=== PATIENT | female | born 1975 | race Caucasian/White ===

== ENCOUNTER 2017-02-22 21:25 | Inpatient (IN) | payer OTHER ==
[~2017-02-22] VITALS: Ht 162.6 cm; Wt 100.5 kg
[~2017-02-22 21:25] MED LIST: MTR600X PO; OXYC-57 PO
[2017-02-22] MEDS ORDERED: SODIUM CHLORIDE 0.9% 1000ML 1,000 ML IV STA ×2 (21:58)
[2017-02-22 22:13] LABS: ISTAT CREATININE 0.9 mg/dl (0.6-1.3); ISTAT HEMOGLOBIN 14.6 g/dl (12.0-16.0); ISTAT IONIZED CALCIUM 1.17 mmol/l (1.12-1.32)
[2017-02-22 22:14] LABS: URINE APPEARANCE CLEAR (CLEAR); URINE BILIRUBIN NEG (NEG); URINE COLOR YELLOW; URINE NITRITE NEG (NEG); UROBILINOGEN NEG (NEG); ZZUR CULT IF INDIC CLEAN CATCH NO
[2017-02-22 22:16] LABS: MANUAL MICROSCOPIC REQUIRED? NO; REVIEW REQ? NO
[2017-02-22 22:24] LABS: PREG INTERNAL NEGATIVE QC NEG CLEAR BACKGROUND; PREG INTERNAL POSITIVE QC POS CONTROL LINE
[2017-02-22 22:26] LABS: ALT/SGPT 31 U/L (12-78); BLOOD UREA NITROGEN 9 mg/dl (7-18); BUN/CREATININE RATIO 9.6 (10-20); CALCIUM 9.1 mg/dl (8.5-10.1); CARBON DIOXIDE 22 mmol/L (21-32); CHLORIDE 107 mmol/L (98-107); CREATININE 0.94 mg/dl (0.60-1.20); GLUCOSE 67 mg/dl (70-99); MAGNESIUM 2.6 mg/dl (1.8-2.4); POTASSIUM 3.1 mmol/L (3.5-5.1); SODIUM 139 mmol/L (136-145)
[2017-02-22 22:30] LABS: BASO % 0.2 %; BASO ABS # 0.02 K/uL (0-0.2); COMPLETE YES; EOS % 1.2 %; HEMATOCRIT 38.6 % (37-47); IG% 0.2 %; LYMPH % 31.9 %; LYMPH ABS # 3.48 K/uL (1.2-3.4); MEAN CELL VOLUME 87.3 fL (80-100); MEAN CORPUSCULAR HEMOGLOBIN 30.1 pg (25-34); MEAN CORPUSCULAR HGB CONC 34.5 g/dl (32-36); MEAN PLATELET VOLUME 9.8 fL (7.4-10.4); MONO % 4.7 %; NEUT % 61.8 %; PLATELET COUNT 267 K/uL (130-400); RED BLOOD COUNT 4.42 M/uL (4.2-5.4)
[2017-02-22] MEDS ORDERED: POTASSIUM CHLORIDE 10 MEQ TABCR PO STA (22:33)
[2017-02-22 22:40] LABS: BENZODIAZEPINE, URINE NEG (NEG); COCAINE,URINE NEG (NEG); PHENCYCLIDINE, URINE NEG (NEG)
[2017-02-22 22:41] LABS: ALKALINE PHOSPHATASE 74 U/L (45-117); AST/SGOT 21 U/L (15-37); CKMB/CK RATIO 0.7 (0-3.0); PHOSPHORUS 1.3 mg/dl (2.5-4.9)
[2017-02-22 22:42] LABS: PARTIAL THROMBOPLASTIN RATIO 1.1; PROTHROMBIN TIME (PATIENT) 10.4 SECONDS (9.0-12.0)
--- NOTE | 2017-02-22 22:43 | DIAGNOSTIC IMAGING REPORT ---
HEAD CT NONCONTRAST CT DOSE: 537.48 mGy.cm HISTORY: seizure, new, headache TECHNIQUE: Multiaxial CT images of the head were performed without the use of intravenous contrast. Automated exposure control was utilized for this study. Comparison: None. Findings: The paranasal sinuses and mastoid air cells are clear. The calvarium and skull base are intact. The ventricles and sulci are within normal limits. There is no mass, hematoma, midline shift, or acute infarct. Impression: No acute intracranial abnormality. If this is the patient's first reported seizure then follow-up nonemergent brain MRI is recommended. Electronically signed by: Conner Spear M.D. 02/22/2017 10:41 PM Dictated Date/Time: 02/22/2017 10:39 PM
[2017-02-22] MEDS ORDERED: POTASSIUM PHOS 3 MMOL/1 ML INFUSION IV ONE (23:30)
[2017-02-23] MEDS ORDERED: OPTIRAY 320 IV PRN
[2017-02-23 00:05] VITALS: BP 144/85; PULSE 90; TEMP 36.7; O2SAT 98; Ht 162.6 cm; Wt 100.5 kg
[2017-02-23] MEDS ORDERED: FOLIC ACID IV ONE (00:30)
[2017-02-23] MEDS ORDERED: ACETAMINOPHEN 325 MG TAB PO PRN (00:30)
[2017-02-23] MEDS ORDERED: LORAZEPAM INJ 1 MG in SYRINGE 0.5 ML IV PRN (00:30)
[2017-02-23] MEDS ORDERED: [UNRECOGNIZED DRUG - OTHER] IV ONE (00:30)
[2017-02-23] MEDS ORDERED: LORAZEPAM 2 MG/ML 1 ML VIAL IV PRN (00:30)
[2017-02-23] MEDS ORDERED: KETOROLAC TROMETHAMINE 30 MG/ML VIAL IV PRN (00:30)
[2017-02-23] MEDS ORDERED: ONDANSETRON INJ 2 MG/ML 2 ML VIAL IV PRN (00:30)
[2017-02-23] MEDS ORDERED: OXYCODONE/ACETAMINOPHEN 5-325 TAB PO PRN (00:30)
[2017-02-23] MEDS ORDERED: THIAMINE HCL IV ONE (00:30)
[2017-02-23] MEDS ORDERED: MULTI VITAMIN INFUSION IV ONE (00:30)
[2017-02-23] MEDS ORDERED: SODIUM CHLORIDE 0.9% IV ONE (01:15)
[2017-02-23] MEDS ORDERED: POTASSIUM PHOSPHATE IV ONE (01:15)
--- NOTE | 2017-02-23 01:27 | History and Physical ---
History & Physical Date & Time of Service: Feb 23, 2017 at 01:27 Chief Complaint: possible seizures as per records syncope Primary Care Physician: Reji Bella M.D. History of Present Illness Source: patient, clinic records, EMS Last night patient was getting ready to watch a television show was seated down she noted neck pain. Pleuritic chest upper abdominal pain going to the back. Subsequently blacked out. Patient woke up in the emergency room. Mouth a little sore, no incontinence. No headache. As per filler and trimmer patient was noted to have stiffening of lower extremities followed by seizure-like activity lasting 30 seconds. Another episode witnessed by EMS as per RN. No previous episodes as per px. Admits to a lot of personal stressors lately. 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 Smoking Status: Current Every Day Smoker Marital Status: Housing status: lives with family Occupational Status: employed Immunizations History of Influenza Vaccine: Unknown History of Tetanus Vaccine?: Unknown History of Pneumococcal: Unknown History of Hepatitis B Vaccine: Unknown Multi-Drug Resistant Organisms History of MDRO: No Allergies Coded Allergies: Influenza Vaccines (Unverified Allergy, Severe, Swelling of throat, ) Sulfamethoxazole w/Trimethoprim (Verified Allergy, Mild, RASH, 05/29/14) Fluoxetine (Verified Allergy, Unknown, 05/29/14) Penicillins (Verified Allergy, Unknown, 05/29/14) Home Medications No Active Prescriptions or Reported Meds Review of Systems as per HPI, all other ROS negative Physical Exam Vital Signs Date Time Temp Pulse Resp B/P (MAP) Pulse Ox O2 Delivery O2 Flow Rate FiO2 02/23/17 00:05 36.7 90 20 144/85 98 Room Air 02/22/17 23:54 95 18 139/79 98 Room Air 02/22/17 22:03 Room Air 02/22/17 22:03 Room Air 02/22/17 21:44 98 02/22/17 21:36 36.8 101 20 146/86 95 Room Air General Appearance: + obese, + pertinent finding (occasionally tearful) Head: normocephalic Eyes: normal inspection Neck: no JVD, + pertinent finding (short) Respiratory/Chest: lungs clear Cardiovascular: regular rate, rhythm Abdomen/GI: soft Extremities/Musculoskelatal: normal inspection, non-tender Neurologic/Psych: alert, oriented x 3 Skin: normal color Diagnostics Laboratory Results Results Past 24 Hours Test 02/22/17 21:51 02/22/17 21:55 02/22/17 22:00 02/22/17 22:02 Range/Units Sodium Level 139 136-145 mmol/L Potassium Level 3.1 3.5-5.1 mmol/L Chloride Level 107 98-107 mmol/L Carbon Dioxide Level 22 21-32 mmol/L Anion Gap 10.0 20.0 16-25 mmol/L Blood Urea Nitrogen 9 7-18 mg/dl Creatinine 0.94 0.60-1.20 mg/dl Est Creatinine Clear Calc Drug Dose 94.4 ml/min Estimated GFR () 88.6 Estimated GFR (Non- 76.4 BUN/Creatinine Ratio 9.6 10-20 Random Glucose 67 70-99 mg/dl Calcium Level 9.1 8.5-10.1 mg/dl Phosphorus Level 1.3 2.5-4.9 mg/dl Magnesium Level 2.6 1.8-2.4 mg/dl Total Bilirubin 0.2 0.2-1 mg/dl Direct Bilirubin < 0.1 0-0.2 mg/dl Aspartate Amino Transf (AST/SGOT) 21 15-37 U/L Alanine Aminotransferase (ALT/SGPT) 31 12-78 U/L Alkaline Phosphatase 74 45-117 U/L Total Creatine Kinase 112 26-192 U/L Creatine Kinase MB 0.8 0.5-3.6 ng/ml Creatine Kinase MB Ratio 0.7 0-3.0 Troponin I < 0.015 0-0.045 ng/ml Total Protein 8.2 6.4-8.2 gm/dl Albumin 3.9 3.4-5.0 gm/dl Lipase 386 73-393 U/L Thyroid Stimulating Hormone (TSH) 1.240 0.300-4.500 uIu/ml Human Chorionic Gonadotropin, Qual NEG NEG Bedside Hemoglobin 14.6 12.0-16.0 g/dl Bedside Hematocrit 43 37-47 % Bedside Sodium 140 135-144 mEq/L Bedside Potassium 3.3 3.3-5.0 mEq/L Bedside Chloride 103 101-112 mEq/L Bedside Total CO2 21 24-31 mEq/l Bedside Blood Urea Nitrogen 9 7-18 mg/dl Bedside Creatinine 0.9 0.6-1.3 mg/dl Bedside Glucose (other) 67 70-99 mg/dl Bedside Ionized Calcium (Brittani) 1.17 1.12-1.32 mmol/l Urine Color YELLOW Urine Appearance CLEAR CLEAR Urine pH 7.0 4.5-7.5 Urine Specific [place] 1.010 1.000-1.030 Urine Protein NEG NEG Urine Glucose (UA) NEG NEG Urine Ketones NEG NEG Urine Occult Blood NEG NEG Urine Nitrite NEG NEG Urine Bilirubin NEG NEG Urine Urobilinogen NEG NEG Urine Leukocyte Esterase NEG NEG Urine Opiates Screen NEG NEG Urine Methadone, Qualitative NEG NEG Urine Barbiturates NEG NEG Urine Phencyclidine (PCP) Level NEG NEG Ur Amphetamine/Methamphetamine NEG NEG MDMA (Ecstasy) Screen NEG NEG Urine Benzodiazepines Screen NEG NEG Urine Cocaine Metabolite NEG NEG Urine Marijuana (THC) NEG NEG Bedside Troponin I < 0.030 0-0.045 ng/ml Test 02/22/17 22:19 02/22/17 23:22 Range/Units White Blood Count 10.90 4.8-10.8 K/uL Red Blood Count 4.42 4.2-5.4 M/uL Hemoglobin 13.3 12.0-16.0 g/dL Hematocrit 38.6 37-47 % Mean Corpuscular Volume 87.3 80-100 fL Mean Corpuscular Hemoglobin 30.1 25-34 pg Mean Corpuscular Hemoglobin Concent 34.5 32-36 g/dl Platelet Count 267 130-400 K/uL Mean Platelet Volume 9.8 7.4-10.4 fL Neutrophils (%) (Auto) 61.8 % Lymphocytes (%) (Auto) 31.9 % Monocytes (%) (Auto) 4.7 % Eosinophils (%) (Auto) 1.2 % Basophils (%) (Auto) 0.2 % Neutrophils # (Auto) 6.74 1.4-6.5 K/uL Lymphocytes # (Auto) 3.48 1.2-3.4 K/uL Monocytes # (Auto) 0.51 0.11-0.59 K/uL Eosinophils # (Auto) 0.13 0-0.5 K/uL Basophils # (Auto) 0.02 0-0.2 K/uL RDW Standard Deviation 43.0 36.4-46.3 fL RDW Coefficient of Variation 13.4 11.5-14.5 % Immature Granulocyte % (Auto) 0.2 % Immature Granulocyte # (Auto) 0.02 0.00-0.02 K/uL Prothrombin Time 10.4 9.0-12.0 SECONDS Prothromb Time International Ratio 1.0 0.9-1.1 Activated Partial Thromboplast Time 29.0 21.0-31.0 SECONDS Partial Thromboplastin Ratio 1.1 Ethyl Alcohol mg/dL 22.0 0-3 mg/dl Diagnostic Radiology CT head no acute pathology CT chest no PE CT abdomen and pelvis fatty liver EKG as per my interpretation : NSR, no ischemia, low voltage Impression Assessment and Plan AP Syncope possible seizures Atypical chest pain Hypokalemia, hypophosphatemia Ongoing tobacco abuse PCU Ativan prn seizure, seizure precautions EEG, MRI brain, Neurology consult possible seizures 2-D echo chest pain, syncope Replace electrolytes Nicotine patch Further management pending workup results DVT prophylaxis. Lovenox SQ Full code Advanced Directives Existing Living Will: No Existing Power of Display Artist: No VTE Prophylaxis VTE Risk Assessment Done? Y/N: Yes Risk Level: Moderate
[2017-02-23 04:00] VITALS: BP 144/85; PULSE 90; TEMP 36.7; O2SAT 98
[2017-02-23] MEDS ORDERED: GADAVIST IV PRN (04:00)
--- NOTE | 2017-02-23 05:03 | EMERGENCY ROOM VISIT NOTE ---
History First contact with patient: 21:46 Chief Complaint: OTHER COMPLAINT Stated Complaint: HYPOPHOSPHATASIA, SYNCOPE History of Present Illness The patient is a 41 year old female who presents to the Emergency Room with complaints of 2 seizure-like episodes tonight. Patient states she was having a few drinks at the friend went to the bathroom developed severe chest pain that went to her back and then lay down and then does not remember anything. Patient is unsure why she is here. Patient states she has some mild discomfort in her mid back but nothing else. No history of seizures in the past. She is not heavily drink alcohol. No drug use. Patient states she's been on it or stress lately. Patient denies fever, chills, cough, congestion, vomiting, diarrhea, numbness, tingling. No other concerns per patient. The friend who is with her states that she saw her shake for a minute or 2 and was confused for quite some time after. She was not responsive. This happened twice. EMS did witness one of these episodes. Patient was not incontinent. Review of Systems See HPI for pertinent positives & negatives. A total of 10 systems reviewed and were otherwise negative. Past Medical/Surgical History Medical Problems: (1) Hypophosphatasia (2) Syncope Social History Smoking Status: Current Every Day Smoker Alcohol Use: occasionally Marital Status: Occupation Status: employed Current/Historical Medications No Active Prescriptions or Reported Meds Allergies Coded Allergies: Influenza Vaccines (Unverified Allergy, Severe, Swelling of throat, ) Sulfamethoxazole w/Trimethoprim (Verified Allergy, Mild, RASH, 05/29/14) Fluoxetine (Verified Allergy, Unknown, 05/29/14) Penicillins (Verified Allergy, Unknown, 05/29/14) Physical Exam Vital Signs Date Time Temp Pulse Resp B/P (MAP) Pulse Ox O2 Delivery O2 Flow Rate FiO2 02/22/17 22:03 Room Air 02/22/17 22:03 Room Air 02/22/17 21:44 98 02/22/17 21:36 36.8 101 20 146/86 95 Room Air Pain Rating (0-10): 0 Physical Exam VITALS: Vitals are noted on the nurse's note and reviewed by myself. Vital signs stable. GENERAL: Pleasant female answering questions appropriately, in no acute distress , nondiaphoretic, well-developed well-nourished. SKIN: The skin was without rashes, erythema, edema, or bruising. There is no tenting of the skin. Capillary reflex less than 2 seconds. HEAD: Normocephalic atraumatic. EARS: External auditory canals clear, tympanic membranes pearly mcfarland without erythema or effusion bilaterally. EYES: Pupils equal round and reactive to light and accommodation. Conjunctivae without injection, sclerae without icterus. Extraocular movements intact. NOSE: Patent, turbinates without inflammation or discharge. MOUTH: Mucous membranes moist. Pharynx without erythema or exudate. Uvula midline. Airway patent. Tongue does not deviate. NECK: Supple without nuchal rigidity. No lymphadenopathy. No thyromegaly. Cervical spine is nontender. No JVD. HEART: Regular rate and rhythm without murmurs gallops or rubs. LUNGS: Clear to auscultation bilaterally without wheezes, rales or rhonchi. No dullness to percussion. No retractions or accessory muscle use. ABDOMEN: Positive bowel sounds x 4. Normal tympanic percussion. Soft, nontender, without masses or organomegaly. Whitman sign negative. No guarding or rebound tenderness. MUSCULOSKELETAL: No muscle atrophy, erythema, or edema noted. NEURO: Patient was alert and oriented to person place and time. Normal sensation to light and sharp touch. No focal neurological deficits. Cranial nerves II through XII grossly intact. No pronator drift. Cerebellar exam intact. Medical Decision & Procedures Laboratory Results Test 02/22/17 21:51 02/22/17 21:55 02/22/17 22:00 02/22/17 22:02 Est Creatinine Clear Calc Drug Dose 94.4 ml/min Magnesium Level 2.6 mg/dl (1.8-2.4) Total Bilirubin 0.2 mg/dl (0.2-1) Direct Bilirubin < 0.1 mg/dl (0-0.2) Aspartate Amino Transf (AST/SGOT) 21 U/L (15-37) Alanine Aminotransferase (ALT/SGPT) 31 U/L (12-78) Alkaline Phosphatase 74 U/L (45-117) Total Creatine Kinase 112 U/L (26-192) Creatine Kinase MB 0.8 ng/ml (0.5-3.6) Creatine Kinase MB Ratio 0.7 (0-3.0) Total Protein 8.2 gm/dl (6.4-8.2) Albumin 3.9 gm/dl (3.4-5.0) Lipase 386 U/L (73-393) Thyroid Stimulating Hormone (TSH) 1.240 uIu/ml (0.300-4.500) Human Chorionic Gonadotropin, Qual NEG (NEG) Bedside Hemoglobin 14.6 g/dl (12.0-16.0) Bedside Hematocrit 43 % (37-47) Bedside Sodium 140 mEq/L (135-144) Bedside Potassium 3.3 mEq/L (3.3-5.0) Bedside Chloride 103 mEq/L (101-112) Bedside Total CO2 21 mEq/l (24-31) Bedside Blood Urea Nitrogen 9 mg/dl (7-18) Bedside Creatinine 0.9 mg/dl (0.6-1.3) Bedside Glucose (other) 67 mg/dl (70-99) Bedside Ionized Calcium (Brittani) 1.17 mmol/l (1.12-1.32) Urine Color YELLOW Urine Appearance CLEAR (CLEAR) Urine pH 7.0 (4.5-7.5) Urine Specific [place] 1.010 (1.000-1.030) Urine Protein NEG (NEG) Urine Glucose (UA) NEG (NEG) Urine Ketones NEG (NEG) Urine Occult Blood NEG (NEG) Urine Nitrite NEG (NEG) Urine Bilirubin NEG (NEG) Urine Urobilinogen NEG (NEG) Urine Leukocyte Esterase NEG (NEG) Urine Opiates Screen NEG (NEG) Urine Methadone, Qualitative NEG (NEG) Urine Barbiturates NEG (NEG) Urine Phencyclidine (PCP) Level NEG (NEG) Ur Amphetamine/Methamphetamine NEG (NEG) MDMA (Ecstasy) Screen NEG (NEG) Urine Benzodiazepines Screen NEG (NEG) Urine Cocaine Metabolite NEG (NEG) Urine Marijuana (THC) NEG (NEG) Bedside Troponin I < 0.030 ng/ml (0-0.045) Test 02/22/17 22:19 02/22/17 23:22 RDW Standard Deviation 43.0 fL (36.4-46.3) RDW Coefficient of Variation 13.4 % (11.5-14.5) White Blood Count 10.90 K/uL (4.8-10.8) Red Blood Count 4.42 M/uL (4.2-5.4) Hemoglobin 13.3 g/dL (12.0-16.0) Hematocrit 38.6 % (37-47) Mean Corpuscular Volume 87.3 fL (80-100) Mean Corpuscular Hemoglobin 30.1 pg (25-34) Mean Corpuscular Hemoglobin Concent 34.5 g/dl (32-36) Platelet Count 267 K/uL (130-400) Mean Platelet Volume 9.8 fL (7.4-10.4) Neutrophils (%) (Auto) 61.8 % Lymphocytes (%) (Auto) 31.9 % Monocytes (%) (Auto) 4.7 % Eosinophils (%) (Auto) 1.2 % Basophils (%) (Auto) 0.2 % Neutrophils # (Auto) 6.74 K/uL (1.4-6.5) Lymphocytes # (Auto) 3.48 K/uL (1.2-3.4) Monocytes # (Auto) 0.51 K/uL (0.11-0.59) Eosinophils # (Auto) 0.13 K/uL (0-0.5) Basophils # (Auto) 0.02 K/uL (0-0.2) Immature Granulocyte % (Auto) 0.2 % Immature Granulocyte # (Auto) 0.02 K/uL (0.00-0.02) Prothrombin Time 10.4 SECONDS (9.0-12.0) Prothromb Time International Ratio 1.0 (0.9-1.1) Activated Partial Thromboplast Time 29.0 SECONDS (21.0-31.0) Partial Thromboplastin Ratio 1.1 Ethyl Alcohol mg/dL 22.0 mg/dl (0-3) Medications Administered Medications (Trade) Dose Ordered Sig/Terry Route Start Time Stop Time Status Last Admin Dose Admin Sodium Chloride 1,000 ml @ 999 mls/hr Q1H1M STAT IV 02/22/17 21:58 02/22/17 23:02 DC 02/22/17 21:58 999 MLS/HR Sodium Chloride 1,000 ml @ 125 mls/hr Q8H STAT IV 02/22/17 21:58 02/23/17 05:57 02/22/17 21:58 125 MLS/HR Potassium Chloride (Klor-Con M10) 40 meq NOW STAT PO 02/22/17 22:33 02/22/17 22:34 DC 02/22/17 22:45 40 MEQ ED Course Prior records/ancillary studies reviewed. Patient placed in seizure precautions immediately upon arrival. Nursing notes reviewed. Additional history obtained from family The patient's history was concerning for a possible seizure. Differential diagnosis: Etiologies such as infection, hypoglycemia, electrolyte abnormalities, cardiac sources, intracerebral event, trauma, toxicologic, neurologic, as well as others were entertained. Physical examination: As above. No signs of trauma. ER treatment provided: Potassium, phosphorus On reassessment the patient felt better. Diagnostics interpretation by me: ECG: Normal sinus, normal intervals, no acute ST-T wave changes, rate of 107. Impression sinus tachycardia interpreted by myself The labs revealed no phosphorus, low potassium and this is replaced orally Imaging studies: Head CT Consultation: A consultation was placed with the hospice, Dr. Mata the case was discussed and diagnostics were reviewed. He will evaluate the patient for possible admission. Exam and history seem concerning for possible seizure. Patient will be evaluated by medicine for possible admission for electrolyte abnormalities. Seizure precautions were implemented. Patient is agreeable to treatment plan of admission. The patient was counseled not to drive until cleared in follow-up and seizure precautions given. I gave my usual and customary discussion regarding these issues. The appropriate driver utility worker's license form was completed and submitted. The pt informed about the findings as listed above. All questions were answered and pleased with the treatment. Case reviewed with my attending Medical Decision As above Impression Primary Impression: Hypophosphatasia Additional Impressions: Syncope possible seizure Departure Information Dispostion Still a Patient Condition FAIR Prescriptions No Active Prescriptions or Reported Meds Referrals Reji Bella M.D. (PCP) Forms WORK / SCHOOL INSTRUCTIONS, HOME CARE DOCUMENTATION FORM, IMPORTANT VISIT INFORMATION Patient Instructions My [facility] Problem Qualifiers
[2017-02-23 06:11] LABS: BASO % 0.3 %; BASO ABS # 0.03 K/uL (0-0.2); COMPLETE YES; EOS % 2.4 %; IG% 0.2 %; LYMPH % 37.7 %; LYMPH ABS # 3.48 K/uL (1.2-3.4); MEAN CELL VOLUME 88.8 fL (80-100); MEAN CORPUSCULAR HEMOGLOBIN 30.1 pg (25-34); MEAN CORPUSCULAR HGB CONC 33.9 g/dl (32-36); MONO % 6.2 %; NEUT % 53.2 %; PLATELET COUNT 250 K/uL (130-400); RED BLOOD COUNT 4.28 M/uL (4.2-5.4); WHITE BLOOD COUNT 9.23 K/uL (4.8-10.8)
[2017-02-23 06:38] LABS: BLOOD UREA NITROGEN 6 mg/dl (7-18); BUN/CREATININE RATIO 8.4 (10-20); CARBON DIOXIDE 23 mmol/L (21-32); CHLORIDE 113 mmol/L (98-107); CREATININE 0.76 mg/dl (0.60-1.20); GLUCOSE 77 mg/dl (70-99); POTASSIUM 4.7 mmol/L (3.5-5.1); SODIUM 143 mmol/L (136-145)
--- NOTE | 2017-02-23 06:52 | DIAGNOSTIC IMAGING REPORT ---
CHEST CTA for PULMONARY ARTERIES CT DOSE: 2535.46 mGy.cm HISTORY: Chest pain dyspnea TECHNIQUE: Multiaxial CT images of the chest were performed following the intravenous administration of contrast to evaluate the pulmonary arteries. Maximal intensity projection images were also obtained. COMPARISON STUDY: None. FINDINGS: There is a normal caliber thoracic aorta with no evidence for dissection. There is no evidence for pulmonary embolus. No pleural effusions. No pneumothorax. The liver and spleen are unremarkable. No mediastinal or hilar lymphadenopathy. The central airways are patent. The lungs are clear. IMPRESSION: No evidence for pulmonary embolus. Small hiatal hernia Electronically signed by: Ezequiel Ruiz M.D. 02/23/2017 6:51 AM Dictated Date/Time: 02/23/2017 6:48 AM
[2017-02-23 06:53] LABS: PHOSPHORUS 4.1 mg/dl (2.5-4.9)
[2017-02-23 07:16] LABS: CALCIUM 8.1 mg/dl (8.5-10.1)
--- NOTE | 2017-02-23 07:40 | DIAGNOSTIC IMAGING REPORT ---
MRI OF THE BRAIN COMBO CLINICAL HISTORY: Seizure. COMPARISON STUDY: CT of the brain dated 02/22/2017. TECHNIQUE: MRI of the brain was performed utilizing various T1 and T2-weighted sequences in the axial, sagittal, and coronal planes. Contrast-enhanced sequences were acquired following the administration of 10 cc of Gadavist. The examination is performed using the seizure protocol. The examination is modestly degraded by motion artifact. FINDINGS: Brain parenchyma: The brain parenchyma is normal in appearance. There is no hemorrhage or mass effect. There is no restricted diffusion to suggest acute ischemia. No enhancing mass lesion is identified on the postcontrast images. Madrigal-white matter differentiation is preserved. No extra-axial fluid collection is seen. The cerebellar tonsils are normal in configuration. The hippocampi are normal and symmetric. Ventricles, sulci, and cisterns: Normal in configuration. Pituitary and sella: Unremarkable. Intracranial vasculature: Normal flow voids are maintained at the skull base. Orbits: The bony orbits are grossly intact. Orbital contents are normal in appearance. Sinuses and mastoids: Trace mucosal thickening is suggested in the maxillary antra. The remaining paranasal sinuses and the mastoid air cells are clear. Calvarium: Unremarkable. Cervical cord: Partially visualized cervical spinal cord is normal in morphology and signal intensity. IMPRESSION: No acute intracranial abnormality noting a motion degraded examination. Electronically signed by: Tulio Chisholm M.D. 02/23/2017 7:39 AM Dictated Date/Time: 02/23/2017 7:35 AM
[2017-02-23 07:48] VITALS: BP 110/56; PULSE 83; TEMP 36.8; O2SAT 98
--- NOTE | 2017-02-23 08:01 | DIAGNOSTIC IMAGING REPORT ---
CT SCAN OF THE ABDOMEN AND PELVIS WITH IV CONTRAST CLINICAL HISTORY: Generalized abdominal pain. COMPARISON STUDY: No priors. TECHNIQUE: Following the IV administration of 92 cc of Optiray 320, CT scan of the abdomen and pelvis is performed from the lung bases to the proximal femora. Images are reviewed in the axial, sagittal, and coronal planes. There is an IV malfunction during contrast administration. Automated dose control exposure was utilized. The examination is degraded by streak artifact from the patient's right arm which could not be elevated above the abdomen. FINDINGS: Lung bases: The heart is normal in size and without pericardial effusion. The lung bases are clear. There is a small hiatal hernia. Liver: The contrast-enhanced liver is enlarged, measuring 21 cm in length. The liver demonstrates diffusely diminished attenuation consistent with hepatic steatosis. Fatty sparing is seen adjacent to gallbladder fossa. There is no intrahepatic biliary ductal dilatation. The hepatic veins and portal veins are patent. Gallbladder: Unremarkable. Spleen: Normal in size and attenuation. Pancreas: Unremarkable. Adrenal glands: Unremarkable. Kidneys: The contrast enhanced kidneys are normal in size and without hydronephrosis. The kidneys enhance and excrete symmetrically. Subcentimeter cortical hypodensities likely represent cysts but are too small for definitive characterization. There is no evidence of urothelial lesion within the renal pelvis bilaterally or along the course of the ureters. Abdominal vasculature: The abdominal aorta is normal in course and caliber noting mild and age advanced atherosclerotic calcification. Bowel: The small bowel and colon are normal in course and caliber. The appendix is well-visualized and normal. Peritoneum: There is no intraperitoneal free air or abdominal ascites. There is a fat-containing umbilical hernia. Lymphadenopathy: None. Pelvic viscera: The bladder, uterus, and adnexa are normal as visualized. Bilateral ovarian follicles are observed. A nabothian cyst is suggested in the cervix. Skeletal structures: No lytic or blastic lesions are seen. A hemitransitional right lumbosacral segment is incidentally noted. IMPRESSION: 1. There are no acute infectious or inflammatory findings in the abdomen or pelvis. 2. Hepatomegaly and hepatic steatosis. Electronically signed by: Tulio Chisholm M.D. 02/23/2017 7:59 AM Dictated Date/Time: 02/23/2017 7:55 AM
[2017-02-23] MEDS ORDERED: ENOXAPARIN 40 MG/0.4 ML SYR SQ SCH (09:00)
[2017-02-23] MEDS ORDERED: NICOTINE 21 MG/24 HR TDSY TD SCH (09:00)
--- NOTE | 2017-02-23 12:38 | ECHOCARDIOGRAM REPORT ---
*NOTICE TO RECEIVING DEMOCRAT AGENCY This information is strictly Confidential and protected under [place] law. [place] law prohibits you from making any further disclosure of this information unless further disclosure is expressly permitted by the written consent of the person to whom it pertains or is authorized by law. A general authorization for the release of medical or other information is not sufficient for this purpose. Hospital accepts no responsibility if the information is made available to any other person, INCLUDING THE PATIENT. Interpretation Summary * Name: MARILIN LYONS Study Date: 02/23/2017 06:28 AM BP: 144/85 mmHg * Patient Location: [facility] HR: 83 * : 1975 (M/d/yyyy) Gender: Female Height: 64 in * Age: 41 yrs Weight: 229 lb * Referring Physician: Renato * Performed By: Liz Rouse RDCS * * Reason For Study: CHEST PAIN * BSA: 2.1 m2 * -- Conclusions -- * Normal study. Procedure Details * A complete two-dimensional transthoracic echocardiogram was performed (2D, M-mode, Doppler and color flow Doppler). Left Ventricle * The left ventricle is normal in size. * There is normal left ventricular wall thickness. * Ejection Fraction = 55-60%. * Left ventricular systolic function is normal. * No segmental left ventricular wall motion abnormalities are noted. * The left ventricular wall motion is normal. Right Ventricle * The right ventricular cavity size is normal (basal dimension <4.2 cm in right ventricular apical 4-chamber view). * The right ventricular systolic function is normal as assessed by tricuspid annular plane systolic excursion (TAPSE) (normal >1.5 cm). Atria * The left atrial size is normal. * Right atrial size is normal. * No ASD detected; PFO is not assessed. Mitral Valve * The mitral valve is normal in structure and function. Tricuspid Valve * The tricuspid valve is normal in structure and function. Aortic Valve * The aortic valve is normal in structure and function. Pulmonic Valve * The pulmonary valve is not well seen, but the Doppler examination is normal without significant regurgitation or stenosis. Great Vessels * The aortic root is normal size. Pericardium/Pleural * There is no pericardial effusion. Left Ventricular Diastolic Function * Pulse wave TDI of the anterior and posterior mitral annulas demonstrates normal LV relaxation MMode 2D Measurements and Calculations IVSd 0.90 cm IVSs 1.2 cm LVIDd 4.5 cm LVIDs 3.3 cm LVPWd 0.96 cm LVPWs 1.5 cm IVS/LVPW 0.93 FS 26.8 % EDV(Teich) 92.9 ml ESV(Teich) 44.2 ml EF(Teich) 52.4 % EDV(cubed) 91.7 ml ESV(cubed) 36.0 ml EF(cubed) 60.7 % % IVS thick 32.2 % % LVPW thick 51.8 % LV mass(C)d 139.3 grams LV mass(C)dI 67.2 grams/m\S\2 LV mass(C)s 145.8 grams LV mass(C)sI 70.4 grams/m\S\2 SV(Teich) 48.7 ml SI(Teich) 23.5 ml/m\S\2 SV(cubed) 55.7 ml SI(cubed) 26.9 ml/m\S\2 Ao root diam 2.7 cm Ao root area 5.8 cm\S\2 LA dimension 3.4 cm LA/Ao 1.3 LVAd ap4 29.2 cm\S\2 LVLd ap4 8.3 cm EDV(MOD-sp4) 85.9 ml EDV(sp4-el) 86.7 ml LVAs ap4 17.9 cm\S\2 LVLs ap4 7.1 cm ESV(MOD-sp4) 41.4 ml ESV(sp4-el) 38.2 ml EF(MOD-sp4) 51.9 % EF(sp4-el) 55.9 % LVAd ap2 32.5 cm\S\2 LVLd ap2 8.5 cm EDV(MOD-sp2) 101.7 ml EDV(sp2-el) 105.9 ml LVAs ap2 17.6 cm\S\2 LVLs ap2 6.8 cm ESV(MOD-sp2) 39.5 ml ESV(sp2-el) 38.6 ml EF(MOD-sp2) 61.2 % EF(sp2-el) 63.5 % LVLd %diff 1.7 % EDV(MOD-bp) 94.8 ml LVLs %diff -4.45 % ESV(MOD-bp) 41.4 ml EF(MOD-bp) 56.3 % SV(MOD-sp4) 44.5 ml SI(MOD-sp4) 21.5 ml/m\S\2 SV(MOD-sp2) 62.3 ml SI(MOD-sp2) 30.1 ml/m\S\2 SV(MOD-bp) 53.4 ml SI(MOD-bp) 25.8 ml/m\S\2 SV(sp4-el) 48.5 ml SI(sp4-el) 23.4 ml/m\S\2 SV(sp2-el) 67.2 ml SI(sp2-el) 32.4 ml/m\S\2 Doppler Measurements and Calculations MV E max davide 111.1 cm/sec MV A max davide 60.1 cm/sec MV E/A 1.8 MV dec time 0.22 sec Ao V2 max 131.5 cm/sec Ao max PG 6.9 mmHg Ao max PG (full) 2.4 mmHg LV V1 max PG 4.6 mmHg LV V1 max 106.7 cm/sec
--- NOTE | 2017-02-23 14:49 | Discharge Instructions ---
Discharge Instructions Date of Service Feb 23, 2017. 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 Instructions / Follow-Up Instructions / Follow-Up HOSPITAL FOLLOW UP WITH DR BEAN ON 03/03/17 @ 12: 45 PM FOLLOW UP WITH NEUROLOGY IN [address] TILL EVALUATED BY NEUROLOGY SELIN LAGUNAS PA-C * [facility] * [address] [place] [address] Current Hospital Diet Patient's current hospital diet: Clear Liquid Diet Discharge Diet Recommended Diet: Regular Diet Pending Studies Studies pending at discharge: no Medical Emergencies . Who to Call and When: Medical Emergencies: If at any time you feel your situation is an emergency, please call 911 immediately. . Non-Emergent Contact Non-Emergency issues call your: Primary Care Provider . . "Provider Documentation" section prepared by Aaliyah Wheatley. . VTE Core Measure Inpt VTE Proph given/why not?: Tom Corrales, SCD's
[2017-02-23 14:56] VITALS: BP 110/56; PULSE 83; TEMP 36.8; O2SAT 98
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
--- NOTE | 2017-02-23 16:58 | Discharge Summary ---
Discharge Summary Date of Service Feb 23, 2017. Discharge Summary Admission Date: Feb 22, 2017 at 23:49 Discharge Date: Feb 23, 2017 Discharge Disposition: Home Principal Diagnosis: SYNCOPE /CONCERN FOR SEIZURE DISORDER Procedures: CT HEAD : Impression: No acute intracranial abnormality. If this is the patient's first reported seizure then follow-up nonemergent brain MRI is recommended. CT CHEST WITH CONTRAST : IMPRESSION: No evidence for pulmonary embolus. Small hiatal hernia CT ABDOMEN/PELVIS : IMPRESSION: 1. There are no acute infectious or inflammatory findings in the abdomen or pelvis. 2. Hepatomegaly and hepatic steatosis. MRI OF BRAIN : IMPRESSION: No acute intracranial abnormality noting a motion degraded examination. ECHO : * A complete two-dimensional transthoracic echocardiogram was performed (2D, M- mode, Doppler and color flow Doppler). Left Ventricle * The left ventricle is normal in size. * There is normal left ventricular wall thickness. * Ejection Fraction = 55-60%. * Left ventricular systolic function is normal. * No segmental left ventricular wall motion abnormalities are noted. * The left ventricular wall motion is normal. Consultations: [facility] Medication Reconciliation Medication Profile: No Active Prescriptions or Reported Meds Referrals At Discharge Follow up Referrals: Neurologist Referral - Please Call For Appointment with Selin Herrera PA-C Admission Information HPI (per Admitting provider): Last night patient was getting ready to watch a television show was seated down she noted neck pain. Pleuritic chest upper abdominal pain going to the back. Subsequently blacked out. Patient woke up in the emergency room. Mouth a little sore, no incontinence. No headache. 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 Another episode witnessed by EMS as per RN. No previous episodes as per px. Admits to a lot of personal stressors lately. Poor appetite Physical Exam (per Admitting): General Appearance: + obese, + pertinent finding (occasionally tearful) Head: normocephalic Eyes: normal inspection Neck: no JVD, + pertinent finding (short) Respiratory/Chest: lungs clear Cardiovascular: regular rate, rhythm Abdomen/GI: soft Extremities/Musculoskelatal: normal inspection, non-tender Neurologic/Psych: alert, oriented x 3 Skin: normal color Hospital Course SYNCOPE /POSSIBLE SEIZURE ACTIVITY : no prior hx of Sz disorder noted to have syncope followed by Sz activity -prior arrival to ED /witnessed by EMS Neurological work up : TTE- Normal study. No ASD detected; PFO is not assessed. MRI with and without- normal study CT C/A/P- : . There are no acute infectious or inflammatory findings in the abdomen or pelvis. Hepatomegaly and hepatic steatosis. No evidence of PE. 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 /needs to Sz free during whole duration Neurology follow up with Dr Foote /Selin Herrera PAEliot pt is not co operative , upset as her license is revoked Crying that she will lose her job pt is rein forced over and over again to have neurology follow up as out pt denies to see Neurology follow up Blaming they are the one took her Drivers License away , will cause her to lose her Job ALCOHOL ABUSE : Chronic associated with binge drinking pt was given banana bag, thiamin , folate no sign of withdrawal counselled to quit drinking pt is not interested LOW PHOS/LOW K : possible due to alcohol abuse corrected DVT PROPHYLAXIS SCD AND TEDS AMBULATE DISPOSITION pt is discharged home today Medicine follow up with Dr Bean pt is strongly recommended to follow up with Neurology in Clinic Total time spent on discharge = 35 mins This includes examination of the patient, discharge planning, medication reconciliation, and communication with other providers. Discharge Instructions Discharge Instructions Date of Service Feb 23, 2017. 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 Instructions / Follow-Up Instructions / Follow-Up HOSPITAL FOLLOW UP WITH DR BEAN ON 03/03/17 @ 12: 45 PM FOLLOW UP WITH NEUROLOGY IN [address] TILL EVALUATED BY NEUROLOGY SELIN LAGUNAS PA-C * [facility] * [address] [place] [address] Current Hospital Diet Patient's current hospital diet: Clear Liquid Diet Discharge Diet Recommended Diet: Regular Diet Pending Studies Studies pending at discharge: no Medical Emergencies . Who to Call and When: Medical Emergencies: If at any time you feel your situation is an emergency, please call 911 immediately. . Non-Emergent Contact Non-Emergency issues call your: Primary Care Provider . . "Provider Documentation" section prepared by Aaliyah Wheatley. . VTE Core Measure Inpt VTE Proph given/why not?: Tom Corrales, SCD's Additional Copies To Reji Bella M.D., Kathleen, PA-C
--- NOTE | 2017-02-23 17:40 | EEG Procedure Note ---
EEG Procedure Note Date of Service Feb 23, 2017. Start / End Times Start Time: 11:03 AM End Time: 11:42 AM Referring Physician [place] History This is a 41-year-old female with a syncopal episode. EEG for further evaluation of possible seizure etiology. Home Medication List No Active Prescriptions or Reported Meds Description This is a 21 electrode EEG with a single channel dedicated to limited EKG. The electrodes were placed in accordance with the International 10-20 system. At the start of the recording the patient was in an awake state. Background was well organized and composed of symmetric mixed alpha and beta frequencies. There was a symmetric well-formed moderate amplitude 8-9 Hz posterior dominant rhythm that was reactive to eye opening and closure. Hyperventilation with good effort produced no abnormalities. Intermittent photic stimulation at various frequencies produced no abnormalities. Sleep was indicated by vertex waves and symmetric sleep spindles. Interpretation This is a normal awake and asleep routine EEG. There was no electrographic seizures or epileptiform discharges. Clinical Correlation A normal EEG does not rule out epilepsy if there is a strong clinical suspicion.
[2017-02-24] MEDS ORDERED: THIAMINE HCL 100 MG TAB PO SCH (09:00)
[2017-02-24] MEDS ORDERED: MULTIVITAMIN TAB PO SCH (09:00)
== END 2017-02-23 15:14 | disposition home or self-care (01) | DRG 312 ==
LOC: EDBD 21:25 → C.EDA 21:29 → C.MED 23:49 → EEVIPCON 23:49 → ENRESERV 02-23 00:04
PROVIDERS: ADMIT Hospitalist; ATTEND Hospitalist
DX: R55 Syncope and collapse (principal); R56.9 Unspecified convulsions; F10.129 Alcohol abuse with intoxication, unspecified; E87.6 Hypokalemia; E83.39 Other disorders of phosphorus metabolism; R07.89 Other chest pain; F17.210 Nicotine dependence, cigarettes, uncomplicated